=== PATIENT | male | born 1950 | race African-American/Black ===

== ENCOUNTER 2016-05-01 08:22 | Emergency (ER) | payer MEDICARE ==
[2016-05-01 11:08] LABS: BASOPHILS 0.1 % (0.0-2.0); EOSINOPHILS 1.6 % (0-7); HEMOGLOBIN 12.2 g/dL (13.5-17.5); IMMATURE GRANULOCYTES 0.5 % (0-5); LYMPHOCYTES 29.5 % (15-50); MCHC 32.1 g/dL (31.0-37.0); MCV 74.7 fL (80.0-100.0); MEAN PLATELET VOLUME 11.4 fL (7.4-10.4); MONOCYTES 7.2 % (2-11); NEUTROPHILS 61.1 % (40-80); RBC 5.09 10x6/uL (4.20-6.10); RDW 13.4 % (11.5-14.5); WBC 8.5 10x3/uL (4.8-10.8)
[2016-05-01 11:10] LABS: ALBUMIN 3.7 g/dL (3.4-5.0); ALKALINE PHOSPHATASE 72 U/L (46-116); ALT (SGPT) 21 U/L (10-68); BILIRUBIN - TOTAL 0.43 mg/dL (0.2-1.3); CALC OSMOLALITY 279 mosm/kg (275-300); CALCIUM 9.3 mg/dL (8.5-10.1); CARBON DIOXIDE 29.7 mmol/L (21.0-32.0); CHLORIDE - SERUM 102 mmol/L (98-107); CREATININE - SERUM 0.9 mg/dL (0.6-1.3); GLUCOSE 169 mg/dL (74-106); PROTEIN - SERUM 7.9 g/dL (6.4-8.2); SODIUM 138 mmol/L (136-145); UREA NITROGEN 12 mg/dL (7-18); eGFR NON AFRICAN AMERICAN 90 mL/min (90-120)
[2016-05-01 11:11] LABS: PLATELET COUNT 184 10x3/uL (130-400)
== END 2016-05-01 11:50 | disposition home or self-care (01) ==
LOC: D.ER 08:22
PROVIDERS: Emergency Medicine
DX: E11.65 Type 2 diabetes mellitus with hyperglycemia (principal)

== ENCOUNTER 2019-04-01 23:42 | Emergency (ER) | payer MEDICARE ==
[~2019-04-01] VITALS: Ht 175.3 cm; Wt 81.8 kg
[2019-04-01 23:44] VITALS: Ht 175.3 cm; Wt 81.8 kg
[2019-04-01] MEDS ORDERED: COZAAR100 MG PO (23:45)
[2019-04-01] MEDS ORDERED: GLIPIZIDE10 MG PO (23:45)
[2019-04-01] MEDS ORDERED: PIOGLITAZONE15 MG PO (23:46)
[2019-04-02 02:21] VITALS: BP 177/86
== END 2019-04-02 02:21 | disposition home or self-care (01) ==
LOC: D.ER 23:42
DX: I95.1 Orthostatic hypotension (principal); I10 Essential (primary) hypertension; E11.9 Type 2 diabetes mellitus without complications; Z79.84 Long term (current) use of oral hypoglycemic drugs

== ENCOUNTER 2019-05-08 05:00 | Observation (INO) | payer MEDICARE ==
[~2019-05-08] VITALS: Ht 175.3 cm; Wt 64.9 kg
[2019-05-08 05:28] LABS: BASOPHILS 0 % (0-2); EOSINOPHILS 0.3 % (0-7); HEMATOCRIT 29.6 % (42.0-54.0); HEMOGLOBIN 9.7 g/dL (13.5-17.5); IMMATURE GRANULOCYTES 0.3 % (0-5); LYMPHOCYTES 16.1 % (15-50); MCH 23.7 pg (26.0-34.0); MCHC 32.8 g/dL (31.0-37.0); MCV 72.4 fL (80.0-100.0); MEAN PLATELET VOLUME 9.9 fL (7.4-10.4); MONOCYTES 9.5 % (2-11); NEUTROPHILS 73.8 % (40-80); PLATELET COUNT 198 10x3/uL (130-400); RBC 4.09 10x6/uL (4.20-6.10); RDW 13.5 % (11.5-14.5); WBC 6.2 10x3/uL (4.8-10.8)
[2019-05-08 05:29] LABS: CALCIUM 8.6 mg/dL (8.5-10.1); CARBON DIOXIDE 27.6 mmol/L (21.0-32.0); CHLORIDE - SERUM 99 mmol/L (98-107); CREATININE - SERUM 0.9 mg/dL (0.6-1.3); POTASSIUM - SERUM 3.3 mmol/L (3.5-5.1); SODIUM 134 mmol/L (136-145); UREA NITROGEN 16 mg/dL (7-18); eGFR NON AFRICAN AMERICAN 89 mL/min (90-120)
--- NOTE | 2019-05-08 05:30 | NUR ---
SANDWICH TRAY GIVEN.
[2019-05-08 05:34] LABS: ALBUMIN 2.7 g/dL (3.4-5.0); ALKALINE PHOSPHATASE 52 U/L (30-120); ALT (SGPT) 22 U/L (10-68); BILIRUBIN - TOTAL 0.22 mg/dL (0.2-1.3); LIPASE 124 U/L (73-393); MAGNESIUM - SERUM 1.8 mg/dL (1.8-2.4); PROTEIN - SERUM 6.8 g/dL (6.4-8.2)
[2019-05-08 05:35] LABS: CALC OSMOLALITY 266 mosm/kg (275-300); GLUCOSE 66 mg/dL (74-106)
[2019-05-08 06:10] LABS: BILIRUBIN NEGATIVE (NEGATIVE); GLUCOSE 100 mg/dL (NEGATIVE); KETONE NEGATIVE (NEGATIVE); NITRITE POSITIVE (NEGATIVE); UROBILINOGEN NORMAL (NORMAL)
[2019-05-08 06:12] LABS: BACTERIA MODERATE /hpf (NEGATIVE); EPITHELIAL CELLS NSEEN /hpf (0-5); RED CELLS - URINE 0-5 /hpf (0-5)
--- NOTE | 2019-05-08 11:25 | NUR ---
PATIENT BLOOD SUGAR 86. CRACKERS AND PB GIVEN WELL APPLE JUICE.
--- NOTE | 2019-05-08 14:30 | NUR ---
RESTING IN BED. DENIES NEEDS. WILL CONTINUE TO MONITOR.
[2019-05-08 14:38] LABS: CALCIUM 7.7 mg/dL (8.5-10.1); CARBON DIOXIDE 26.8 mmol/L (21.0-32.0); CHLORIDE - SERUM 101 mmol/L (98-107); MAGNESIUM - SERUM 1.6 mg/dL (1.8-2.4); SODIUM 134 mmol/L (136-145); TROPONIN-I 0.028 ng/mL (0.000-0.060); UREA NITROGEN 18 mg/dL (7-18); eGFR NON AFRICAN AMERICAN 79 mL/min (90-120)
[2019-05-08 14:53] LABS: CALC OSMOLALITY 270 mosm/kg (275-300); GLUCOSE 118 mg/dL (74-106)
--- NOTE | 2019-05-08 20:00 | NUR ---
ALERT RESTING IN BED, DENIES PAIN OR NEEDS AT THIS TIME, SEE SHIFT ASSESSMENT, CALL LIGHT IN REACH
[2019-05-09 05:07] LABS: BASOPHILS 0 % (0-2); EOSINOPHILS 0.3 % (0-7); HEMATOCRIT 27.2 % (42.0-54.0); HEMOGLOBIN 8.9 g/dL (13.5-17.5); IMMATURE GRANULOCYTES 0.5 % (0-5); LYMPHOCYTES 25.3 % (15-50); MCH 23.8 pg (26.0-34.0); MCHC 32.7 g/dL (31.0-37.0); MCV 72.7 fL (80.0-100.0); MEAN PLATELET VOLUME 10.4 fL (7.4-10.4); MONOCYTES 10.5 % (2-11); NEUTROPHILS 63.4 % (40-80); PLATELET COUNT 200 10x3/uL (130-400); RBC 3.74 10x6/uL (4.20-6.10); RDW 13.6 % (11.5-14.5)
[2019-05-09 05:18] LABS: ALBUMIN 2.4 g/dL (3.4-5.0); ALKALINE PHOSPHATASE 44 U/L (30-120); ALT (SGPT) 19 U/L (10-68); BILIRUBIN - TOTAL 0.25 mg/dL (0.2-1.3); CALC OSMOLALITY 270 mosm/kg (275-300); CARBON DIOXIDE 28.5 mmol/L (21.0-32.0); CHLORIDE - SERUM 102 mmol/L (98-107); CREATININE - SERUM 0.9 mg/dL (0.6-1.3); GLUCOSE 92 mg/dL (74-106); MAGNESIUM - SERUM 1.6 mg/dL (1.8-2.4); POTASSIUM - SERUM 3.8 mmol/L (3.5-5.1); PROTEIN - SERUM 6.3 g/dL (6.4-8.2); SODIUM 135 mmol/L (136-145); UREA NITROGEN 15 mg/dL (7-18); eGFR NON AFRICAN AMERICAN 89 mL/min (90-120)
[2019-05-09 05:30] LABS: WBC 3.8 10x3/uL (4.8-10.8)
--- NOTE | 2019-05-09 12:52 | HP ---
PATIENT: SAMEER WHITE MEDICAL RECORD: [id number] ACCOUNT: [id number] LOCATION:D.[id number] : 50 ADMISSION DATE: 05/08/19 PCP: RICA CARDONA MD HISTORY AND PHYSICAL EXAMINATION DATE OF ADMISSION: 05/08/2019 CHIEF COMPLAINT: Low blood sugar. HISTORY OF PRESENT ILLNESS: This is a 68-year-old -Armenian male has an indwelling catheter for BPH. He is awaiting followup visit with Dr. Gale to schedule UroLift procedure. His states that a last couple of nights his blood sugar has been lower. He woke up in a "heavy sweat" last couple of nights. She checked his blood sugar and it was down to 35. She gave him some candy. She called EMS and blood sugar was 55 by them. He was brought to the ER where his blood pressure was 102/72. CBC was okay except hemoglobin of 9.7. CMP was normal. Urinalysis showed urinary infection and he is admitted with multiple hypoglycemic episodes of UTI with Mendes catheter. PAST MEDICAL AND SURGICAL HISTORY: Diabetes, hypertension, hyperlipidemia, BPH with LUTS. PAST SURGICAL HISTORY: None. ALLERGIES: Cough with ASA inhibitors and metformin caused GI side-effects. HOME MEDICATIONS: Diltiazem ER 240 once a day, Flomax 0.4 mg once a day, glipizide 10 mg once a day, pioglitazone 15 mg once a day. HABITS: Former smoker, no alcohol or drugs. FAMILY HISTORY: Father at 80 of prostate cancer. Mother at 97 of lung issues. SOCIAL HISTORY: , retired. REVIEW OF SYSTEMS: GENERAL: No major weight changes. HEENT: No sinus or allergy problems. RESPIRATORY: No history of emphysema or asthma. CARDIAC: No history of heart disease. GASTROINTESTINAL: Occasional heartburn. GENITOURINARY: BPH with a normal PSA. MUSCULOSKELETAL: Few joint aches and pains. NEUROLOGIC: No seizures or migraines. PSYCHIATRIC: No known problems there. PHYSICAL EXAMINATION: VITAL SIGNS: Temperature 98.4, pulse 96, respirations 18, blood pressure 102/72 in the Emergency Department. GENERAL: He is awake and alert. He does not appear in distress. SKIN: Warm and dry. HEENT: Grossly within normal limits. NECK: Supple. HEART: Regular rate and rhythm without murmur. HISTORY AND PHYSICAL [id number] SAMEER WHITE LUNGS: Clear. ABDOMEN: Soft, nontender. EXTREMITIES: No edema. LABORATORY AND DIAGNOSTIC DATA: CBC with a white count of 6200, hemoglobin 9.7, hematocrit 29.6. Basic metabolic panel; sodium 134, potassium 3.3, chloride 99, CO2 27.6, BUN 16, creatinine 0.9, glucose 66 and calcium 8.6. Liver functions were all normal. ETOH was 0.0. Urinalysis; 1+ protein, 2+ blood, positive nitrite, 1+ leukocyte esterase, 5-10 white blood cells and moderate bacteria. Urine culture is pending. ASSESSMENT: 1. Catheter associated urinary tract infection. 2. Type 2 diabetes with hypoglycemic episodes. PLAN: We will admit, IV fluids. Suggest diabetes medicines, IV antibiotics for his UTI. Urine culture is pending. Other tests or procedures as warranted. TRANSINT:[id number] Voice Confirmation ID: [id number] DOCUMENT ID: [id number] RICA CARDONA MD at 1252 CC: [id number] DICTATION DATE: 05/09/19928 IT SECURITY ADMINISTRATOR: 05/09/19 09 ADM IN [place] [address] [place] [id number]
[2019-05-09 13:30] VITALS: Ht 175.3 cm; Wt 64.9 kg
--- NOTE | 2019-05-09 14:30 | NUR ---
REMOVED CARDENAS ORDERED. FAMILY IS AT THE BEDSIDE, TALKED WITH THE PATIENT AND FAMILY.
--- NOTE | 2019-05-09 17:22 | MORECARE ---
CASE MANAGEMENT DISCHARGE SUMMARY PATIENT: SAMEER WHITE UNIT: [id number] ADM DATE: 05/08/19 AGE: 68 : 50 SEX: M ROOM/BED: D.2234 AUTHOR: MARLENE GIL PHYSICIAN: REFERRING PHYSICIAN: RICA CARDONA MD DATE OF SERVICE: 05/09/19 Discharge Plan Patient Name: SAMEER WHITE [facility] [facility] 1950 Planned Disposition: Anticipated Discharge Date: Discharge Date: Expected LOS: Initial Reviewer: [email or web address] Initial Review Date: 05/08/2019 Generated: 05/09/19 6:21 pm External Providers External Provider: OTHER-OTHER Next Contact Date: Service Request Date: Service Type: Resolution: Reviewer: Comments: Coverage Notice Reviewer: [email or web address] Dewayne Murphy Notice Issued Date-Time: 05/08/2019 17:33 Notice Type: Medicare Outpatient Observation Notice Notice Delivered To: Patient Relationship to Patient: Self Knit Goods Press Hand Name: Delivery Method: HAND - Hand Delivered Dania Days: Prior Verbal Notification: Recipient Understood Notice: Yes Recipient Signature: Yes Med Rec Note Co-signed by Attending: Coverage Notice Comment: FAULKNER explained, signed, given, copy placed in MR Patient Name: SAMEER WHITE Page [phone] at 1722 All edits/amendments must be made on the electronic document DICTATION DATE: 05/09/191720 PRESIDENT/GM PRODUCTION & LIVE EXPERIENCES: JACK 05/09/191720 RPT#: [id number] DC DATE: STATUS: ADM IN [facility] [address] [place] [address] END OF REPORT
--- NOTE | 2019-05-09 19:00 | NUR ---
BEDSIDE REPORT RECEIVED AND CARE OF PT ASSUMED. PT LYING IN SUPINE POSITION WITH EYES CLOSED. CARDENAS CATHETER DRAINING TO GRAVITY WITH YELLOW URINE IN COLLECTION BAG. IV TO RIGHT AC SALINE LOCKED. TELEMETRY IN PLACE AND READING SR AT THIS ASSESSMENT. CONTACT ISOLATION IN PLACE FOR POSSIBLE MRSA. WILL MONITOR FOR NEEDS.
--- NOTE | 2019-05-09 19:04 | NUR ---
PLACED A CARDENAS WITHOUT DIFFICULTY. STAT LOCK IN PLACE.
--- NOTE | 2019-05-09 20:35 | NUR ---
HS MEDICATIONS GIVEN. FSBS 248 THIS CHECK REQUIRING COVERAGE WITH 4 UNITS OF INSULIN PER SLIDING SCALE.
--- NOTE | 2019-05-10 02:07 | NUR ---
EMPTIED OVER 3000 ML FROM CARDENAS SO FAR THIS SHIFT.
--- NOTE | 2019-05-10 06:03 | NUR ---
PT HAVING NOSEBLEED...GAVE COOL WET CLOTH AND TISSUES. WILL CONTINUE TO MONITOR CLOSELY.
--- NOTE | 2019-05-10 07:10 | NUR ---
PT RESTING IN BED. NO SIGNS OF DISTRESS. IV TO RIGHT AC PATENT NO REDNESS OR TENDERNESS. ON TELEMETRY 99 SR. HAS CARDENAS NO KINKS PATENT. ON CONTACT ISO. ALL FALL PRECAUTIONS IN PLACE. DENIES ANY FURTHER NEED AT THIS TIME. CALL LIGHT IN REACH. BED LOW POSITION. FAMILY AT BEDSIDE AT THIS TIME.
--- NOTE | 2019-05-10 10:13 | MORECARE ---
CASE MANAGEMENT DISCHARGE SUMMARY PATIENT: SAMEER WHITE UNIT: [id number] ADM DATE: 05/08/19 AGE: 68 : 50 SEX: M ROOM/BED: D.2234 AUTHOR: MARLENE GIL PHYSICIAN: REFERRING PHYSICIAN: RICA CARDONA MD DATE OF SERVICE: 05/10/19 Discharge Plan Patient Name: SAMEER WHITE Facility: [facility]:[place] : 1950 Planned Disposition: Anticipated Discharge Date: Discharge Date: Expected LOS: Initial Reviewer: [email or web address] Initial Review Date: 05/08/2019 Generated: 05/10/19 11:13 am Comments DCP- Discharge Planning Updated by [email or web address]: Kathrine Murphy on 05/10/19 9:[address] Urine sensitivities are on chart. I have notified Ali at Dr. Cardona's office. Coverage Notice Reviewer: [email or web address] - Kathrine Murphy Notice Issued Date-Time: 05/08/2019 17:33 Notice Type: Medicare Outpatient Observation Notice Notice Delivered To: Patient Relationship to Patient: Self Web Marketing Coordinator Name: Delivery Method: HAND - Hand Delivered Dania Days: Prior Verbal Notification: Recipient Understood Notice: Yes Recipient Signature: Yes Med Rec Note Co-signed by Attending: Coverage Notice Comment: LUCIE explained, signed, given, copy placed in MR Last DP export: 05/09/19 4:22 p Patient Name: SAMEER WHITE Page [phone] at 1013 All edits/amendments must be made on the electronic document DICTATION DATE: 05/10/19 1013 FBI FIELD AGENT: JACK 05/10/19 1013 RPT#: [id number] DC DATE: STATUS: ADM IN [facility] [address] [place] [address] END OF REPORT
[2019-05-10 13:16] VITALS: BP 101/60
--- NOTE | 2019-05-10 14:12 | MORECARE ---
CASE MANAGEMENT DISCHARGE SUMMARY PATIENT: SAMEER WHITE UNIT: [id number] ADM DATE: 05/08/19 AGE: 68 : 50 SEX: M ROOM/BED: D.2234 AUTHOR: MARLENE GIL PHYSICIAN: REFERRING PHYSICIAN: RICA CARDONA MD DATE OF SERVICE: 05/10/19 Discharge Plan Patient Name: SAMEER WHITE Facility: [facility]:[place] : 1950 Planned Disposition: Anticipated Discharge Date: Discharge Date: Expected LOS: Initial Reviewer: [email or web address] Initial Review Date: 05/08/2019 Generated: 05/10/19 3:11 pm Comments DCP- Discharge Planning Updated by [email or web address]: Kathrine Murphy on 05/10/19 9:[address] Urine sensitivities are on chart. I have notified Ali at Dr. Cardona's office. External Providers External Provider: [employer] Next Contact Date: Service Request Date: Service Type: Resolution: Reviewer: Comments: Coverage Notice Reviewer: [email or web address] Dewayne Murphy Notice Issued Date-Time: 05/08/2019 17:33 Notice Type: Medicare Outpatient Observation Notice Notice Delivered To: Patient Relationship to Patient: Self Convex Grinder Name: Delivery Method: HAND - Hand Delivered Dania Days: Prior Verbal Notification: Recipient Understood Notice: Yes Recipient Signature: Yes Med Rec Note Co-signed by Attending: Coverage Notice Comment: LUCIE explained, signed, given, copy placed in MR Last DP export: 05/10/19 9:13 a Patient Name: SAMEER WHITE Page [phone] at 1412 All edits/amendments must be made on the electronic document DICTATION DATE: 05/10/19 1412 OUT OF TOWN COLLECTION CLERK: JACK 05/10/19 1412 RPT#: [id number] DC DATE: STATUS: ADM IN [facility] [address] [place] [address] END OF REPORT
--- NOTE | 2019-05-10 15:43 | NUR ---
DISCHARGE INSTRUCTIONS GIVEN. SEEMS TO UNDERTSTAND INSTRCUTIONS. IV OUT TIP INTACT. TELEMETRY OFF AND RETURNED. LEFT WITH HOSPITAL STAFF TO GO HOME IN [place] RIDE TO GO HOME
== END 2019-05-10 15:44 | disposition home health service (06) ==
LOC: D.ER 05:00 → D.MS 06:53 → D.ER 07:26 → OBSVTIME 08:11 → D.MS 05-10 15:44
PROVIDERS: Family Medicine; ADMIT Family Medicine; ATTEND Family Medicine
DX: T83.518A Infection and inflammatory reaction due to other urinary catheter, initial encounter (principal); E11.649 Type 2 diabetes mellitus with hypoglycemia without coma; E78.5 Hyperlipidemia, unspecified; I12.9 Hypertensive chronic kidney disease with stage 1 through stage 4 chronic kidney disease, or unspecified chronic kidney disease; N18.9 Chronic kidney disease, unspecified

== ENCOUNTER 2019-05-30 06:00 | Day surgery (SDC) | payer MEDICARE ==
[2019-05-29 14:54] LABS: HEMATOCRIT 29.8 % (42.0-54.0); HEMOGLOBIN 9.7 g/dL (13.5-17.5); MCH 24.5 pg (26.0-34.0); MCHC 32.6 g/dL (31.0-37.0); MCV 75.3 fL (80.0-100.0); MEAN PLATELET VOLUME 10.2 fL (7.4-10.4); RBC 3.96 10x6/uL (4.20-6.10); RDW 15.4 % (11.5-14.5); WBC 6.3 10x3/uL (4.8-10.8)
[2019-05-29 15:09] LABS: ANION GAP 16.7 mmol/L (8-16); CALCIUM 9.1 mg/dL (8.5-10.1); CARBON DIOXIDE 22.2 mmol/L (21.0-32.0); CREATININE - SERUM 1.4 mg/dL (0.6-1.3); POTASSIUM - SERUM 3.9 mmol/L (3.5-5.1)
[~2019-05-30] VITALS: Ht 175.3 cm; Wt 64.9 kg
[~2019-05-30 06:00] MED LIST: CARDURA2 MG PO; COZAAR100 MG PO; DILTIAZEM 24HR240 M4 PO; FLOMAX0.4 MG PO; GLIPIZIDE10 MG PO; PIOGLITAZONE15 MG PO; VIBRAMYCIN 100100 MG PO
[2019-05-30 06:47] VITALS: Ht 175.3 cm; Wt 64.9 kg
--- NOTE | 2019-05-30 09:44 | OP ---
PATIENT NAME: SAMEER WHITE MEDICAL RECORD: [id number] :50 LOCATION:D[facility] ADMISSION DATE: SURGEON: JORDIN LIZARRAGA MD DATE OF OPERATION: 05/30/2019 SURGEON: Jordin Lizarraga MD ANESTHESIA: TIVA by Taco [place] MD DIAGNOSIS: Urinary retention due to obstructive benign prostatic hypertrophy. PROCEDURE: UroLift times 8 units deployed, 6 held (4 in-box configuration around bladder neck, and 2 at the verumontanum level). FINDINGS: Obstructive bladder neck and lateral lobes. Single ureteral orifices bilaterally. Mucosal irritation from the indwelling Mendes catheter, but no bladder tumors were seen. The bladder is trabeculated with cellules and diverticula. CLINICAL HISTORY: This is a 68-year-old male, who went into urinary retention, which caused hyponatremia, metabolic encephalopathy, and acute renal failure. He has an indwelling Mendes catheter since then. He has a history of diabetes mellitus type 2 and hypertension. His IPSS is 25 and quality of life score is 5. He has been put on tamsulosin since his hospitalization. We performed a voiding trial in the office and he failed that. HE IS ALLERGIC TO METFORMIN AND LISINOPRIL. He comes now to have the UroLift procedure done. He was given Levaquin IV vp communications to the OR. DESCRIPTION OF PROCEDURE: The patient was given IV sedation. He was placed into the lithotomy position. The UroLift scope was introduced. The main sites of obstruction are the lateral lobes of the prostate and at the bladder neck. Then, 1.5 cm distal to the bladder neck, we placed at the anterolateral sulcus 1 unit on each side. Then, at the level of the verumontanum, we placed at the anterolateral sulcus 1 unit on each side. We had one misfire on the left anterolateral sulcus near the bladder neck. There was another misfire on the right anterolateral sulcus at the verumontanum level. We then went in with the obturator. There was still obstruction of the bladder neck. I decided to create a box configuration around the bladder neck. One unit was fired at the mid urethral level 1.5 cm distal to the bladder neck. One unit was fired on each side. This resulted in nice wide open bladder neck and prostatic urethra. Through the scope sheath, I inserted a Sensor wire. The scope was then removed. Over the wire, we inserted a 16-[place] tip Mendes catheter. The patient will go home with the Mendes catheter. I will see him in followup next week to remove the Mendes catheter for a voiding trial. TRANSINT:[id number] Voice Confirmation ID: [id number] DOCUMENT ID: [id number] OPERATIVE REPORT [id number] SAMEER WHITE, JORDIN Medina MD at 0944 CC: [id number] DICTATION DATE: 05/30/19904 RACK WASHER: 05/30/19 0930 [address] [place] [id number] [place] [address]
--- NOTE | 2019-05-30 14:39 | NUR ---
[address] LIZARRAGA WITH REPORT OF PT'S PAIN & REQUEST FOR PAIN MED. ORDERS RECEVIED. 1 NORCO 7.5/325MG PO FOR PAIN. PT RANKS PAIN -10/22. Estela SHARIF R.N. 1145 RANKS PAIN @ 3-06/22 DOWN FROM PREVIOUS -10/22. IV COMPLETED & DC'ED WITH CATH INTACT. CARDENAS COLLECTION BAG EMPTIED OF 100ML BLOODY URINE. PT DRESSING WITH ASSISTANCE FROM . Estela SHARIF R.N. 1210 DRESSED. AWAKE & ALERT. GIVEN DISCHARGE INFORMATION INCLUDING: MED REC, RTC APPT., [facility] D/C INSTRUCTIONS & POST UROLIFT D/C INSTRUCTIONS. PT & VOICED UNDERSTANDING. TO PRIVATE CAR PER STAFF. HOME WITH , SHAVON WHITE. Estela SHARIF R.N.
== END 2019-05-30 12:10 | disposition home or self-care (01) ==
LOC: D.OPS 06:00 → D.PAN 08:10 → D.OPS 08:10 → D.PAN 08:15 → D.OPS 12:10
PROVIDERS: Anesthesiology; ATTEND Urology
DX: N40.1 Benign prostatic hyperplasia with lower urinary tract symptoms (principal); N13.8 Other obstructive and reflux uropathy; E11.9 Type 2 diabetes mellitus without complications; I10 Essential (primary) hypertension; Z79.84 Long term (current) use of oral hypoglycemic drugs; R33.8 Other retention of urine

== ENCOUNTER 2019-06-23 14:22 | Inpatient (IN) | payer MEDICARE ==
--- NOTE | 2019-06-23 17:50 | NUR ---
The patient admits to halfway with a refferal from Dr. Marie. He is ambulatory and pleasant at this time. Apparently he has had some issues with increased confusion and aggression at home. He has one scar on his chest from an old heart surgery. Spoke to his and she says he is a full code. The patient is pleasant and another patient is screaming and it is making him nervous. Will monitor his behaviors and moods.
[2019-06-23] MEDS ORDERED: GLIMEPIRIDE1 MG PO (18:14)
[2019-06-23 18:15] VITALS: BP 149/82; BMI 21.1
[2019-06-23 20:00] VITALS: BP 167/87
--- NOTE | 2019-06-24 00:09 | NUR ---
B.) PT IS ALERT AND ORIENTED TO SELF AND SITUATION. HE IS CALM AND COOPERATIVE WITH STAFF. HE IS PARANOID AT TIMES AND WANTS THE DOOR TO HIS ROOM BE OPEN SLIGHTLY SO HE MAY SEE THE PETERSON. HIS HANDS ARE SHAKING A LITTLE. I.) REDIRECT OFTEN. R.) EASY TO REDIRECT P.) WILL CONTINUE TO MONITOR.
[2019-06-24 03:24] LABS: BILIRUBIN NEGATIVE (NEGATIVE); GLUCOSE 50 mg/dL (NEGATIVE); KETONE NEGATIVE (NEGATIVE); NITRITE NEGATIVE (NEGATIVE); UROBILINOGEN NORMAL (NORMAL)
[2019-06-24 03:25] LABS: RED CELLS - URINE 0-5 /hpf (0-5); WHITE CELLS - URINE RARE /hpf (NEGATIVE)
[2019-06-24 03:38] LABS: BASOPHILS 0.2 % (0-2); EOSINOPHILS 1.6 % (0-7); HEMATOCRIT 33.6 % (42.0-54.0); HEMOGLOBIN 10.5 g/dL (13.5-17.5); IMMATURE GRANULOCYTES 0.2 % (0-5); LYMPHOCYTES 39.8 % (15-50); MCH 24.5 pg (26.0-34.0); MCHC 31.3 g/dL (31.0-37.0); MCV 78.3 fL (80.0-100.0); MEAN PLATELET VOLUME 9.6 fL (7.4-10.4); MONOCYTES 7.8 % (2-11); NEUTROPHILS 50.4 % (40-80); PLATELET COUNT 199 10x3/uL (130-400); RBC 4.29 10x6/uL (4.20-6.10); WBC 6.2 10x3/uL (4.8-10.8)
[2019-06-24 04:10] LABS: ALBUMIN 3.7 g/dL (3.4-5.0); ANION GAP 13.6 mmol/L (8-16); BILIRUBIN - TOTAL 0.36 mg/dL (0.2-1.3); CALCIUM 8.6 mg/dL (8.5-10.1); CHOL - HDL RATIO 1.6 ratio (2.3-4.9); CREATININE - SERUM 1.1 mg/dL (0.6-1.3); LDL-HDL RATIO 0.5 ratio (1.5-3.5); POTASSIUM - SERUM 3.6 mmol/L (3.5-5.1); PROTEIN - SERUM 7.7 g/dL (6.4-8.2); THYROID STIMULATING HORMONE 1.19 uIU/mL (0.36-3.74)
[2019-06-24] MEDS ORDERED: CENTRUM MEN'S1 EACH (06:50)
[2019-06-24 09:04] VITALS: BP 178/87
[2019-06-24 09:05] VITALS: BP 178/87
[2019-06-24 12:43] VITALS: Wt 64.2 kg
--- NOTE | 2019-06-24 13:34 | NUR ---
The patient is awake and alert, he is oriented x3 at this time. He is forgetful at times and needs redirection. He is pleasant and has not shown any aggression today. He can ambulate, but says he feels unsteady. He is in a w/c and he is attempting to self propel. Provide prescribed meds. The patient is compliant with meds and unit milieu. Continue POC.
[2019-06-24 20:00] VITALS: BP 152/81
--- NOTE | 2019-06-24 22:36 | NUR ---
B.) PT IS ALERT AND ORIENTED TO SELF AND SITUATION AT TIMES. HE IS UNSTEADY ON HIS FEET SO HE IS USING A WHEELCHAIR TO ASSIST WITH AMBULATION. HE IS DEMANDING AND INTRUSIVE WITH STAFF. HE IS PARANOID ABOUT HIS MEDICATIONS. I.) PROVIDED PM MEDICATIONS. REDIRECT NEEDED. R.) COMPLIANT WITH ALL MEDICATIONS. EASY TO REDIRECT AT TIMES. P.) WILL CONTINUE TO MONITOR.
[2019-06-25 08:54] VITALS: BP 130/70
--- NOTE | 2019-06-25 10:30 | NUR ---
The patient is up and awake. He is sitting in a w/c and self propels. He is pleasant, but he has questions about all of his meds. Explained to him that he has to take them to get to feeling better. He said "Well, I can't do anything with all that stuff I'm on." Provide prescribed meds. The patient is compliant with meds. Continue POC.
--- NOTE | 2019-06-25 16:41 | NUR ---
Spoke to the patient's spouse and she said she would like to speak to the psychiatrist and explained to her that the social media marketing specialist will speak to her soon and after that a phone conversation can be arranged with the psychiatrist. The patient's spouse was pleased with that answer.
--- NOTE | 2019-06-25 16:53 | HP ---
PATIENT: SAMEER WHITE MEDICAL RECORD: [id number] ACCOUNT: [id number] LOCATION:[facility] : 50 ADMISSION DATE: 06/23/19 PCP: RIAC CARDONA MD HISTORY AND PHYSICAL EXAMINATION Sameer White is a 68-year-old male that was referred to the [facility] from home, referred by primary care physician. CHIEF COMPLAINT: Increased confusion and agitation. HISTORY OF PRESENT ILLNESS: The patient presented with spouse to a primary care clinic. Spouse states that the patient has had increased belligerent, less participation with activities of daily living. The patient's spouse states that he gets fixated on one thing for the whole day. The patient reports that he does worry. The patient reports that he has lots of anxiety. He gets afraid and he gets jittery. The patient denies any suicidal or homicidal ideation. The patient states that he had high anxiety for some time and that it is getting worse and he cannot manage it. The patient states that he does worry. He states that he has difficulty with sleep and his appetite is poor. The patient states that he does get easily irritated and agitated. PAST MEDICAL AND SURGICAL HISTORY: He has had diabetes, hypertension, hyperlipidemia, BPH with LUTS. PAST SURGICAL HISTORY: None. FAMILY HISTORY: Noncontributory. ALLERGIES: COUGH WITH ASA INHIBITORS AND METFORMIN CAUSE GI SIDE EFFECTS. HOME MEDICATIONS: Potassium ER 240 once a day, Flomax 0.4 mg once a day, glipizide 10 mg once a day, pioglitazone 15 mg once a day. SOCIAL HISTORY: The patient is . His previous was killed in an accident. 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 Prior to that, he worked at the [employer]. He has one daughter that lives in [place] and he has a stepdaughter and current that lives in [place]. MENTAL STATUS EXAM: The patient's general appearance is appropriate to setting. The patient is alert to person, place, time and situation. His speech is soft, low tone, low volume. His associations are loose. His eye contact is good. His judgment is impaired. The patient does have some mild blocking. His mood is depressed and anxious. His affect is flat, narrow in range. The patient has no tremors to his hands bilaterally. His anxiety is moderate. His memory is good for remote events. Does have short-term memory deficits. The patient does not appear to be hallucinating to visual, auditory hallucinations at present; however, the patient reports that he does feel he had some at home. His judgment and insight is fair. DIAGNOSTIC IMPRESSION: AXIS I: Generalized anxiety disorder, major depression, single, moderate without psychotic features, differential dementia. AXIS II: Deferred. AXIS III: Diabetes, hypertension, hyperlipidemia, benign prostatic hyperplasia HISTORY AND PHYSICAL [id number] SAMEER WHITE with lower urinary tract symptoms. AXIS IV: Moderate. AXIS V: Global assessment of function is 30. PLAN: At this time, the patient is admitted to the hospital for a comprehensive medical, psychological, and social evaluation. He will be treated with both mood stabilizing and memory enhancing medication. Dictated By: Erendira Bo APN I have interviewed/examined the above patient and agree with these documented findings. TRANSINT:[id number] Voice Confirmation ID: [id number] DOCUMENT ID: [id number] Dictated By: ERENDIRA BO I have interviewed/examined the above patient and agree with these documented findings. LUCIE KIRBY MD at 1402 at 1653 CC: [id number] DICTATION DATE: 06/24/19 1320 LEAD ARCHITECT: 06/24/19 1537 [facility] IN [facility] [address] [place] [address]
--- NOTE | 2019-06-25 19:38 | NUR ---
RECEIVED IN HALLWAY OUTSIDE OF DINING AREA. MOVING ABOUT IN A WHEELCHAIR. CALM AND COOPERATIVE WITH CARE AND ASSESSMENT. SOCIAL WITH THIS STAFF MEMBER. NO SIGNS OF AGGRESSION. REDIRECT AND REORIENT NEEDED. SITTING CALMLY OUTSIDE OF NURSES STATION AT THIS TIME.
[2019-06-25 20:00] VITALS: BP 100/58
[2019-06-26 08:29] VITALS: BP 100/60
--- NOTE | 2019-06-26 12:00 | NUR ---
RECEIVED IN HALLWAY OUTSIDE OF NURSES STATION. CALM AND COOPERATIVE WITH CARE AND ASSESSMENT. NO AGGRESSION OR AGITATION. REDIRECT AND REORIENT NEEDED. EATING LUNCH AT THIS TIME. CONTINUE PLAN OF CARE.
[2019-06-26 20:11] VITALS: BP 161/86
--- NOTE | 2019-06-26 20:49 | NUR ---
RECEIVED IN DAYROOM. SITTING IN DAYROOM IN A WHEELCHAIR. SOCIAL WITH THIS NURSE. CALM AND COOPERATIVE WITH CARE AND ASSESSMENT. NO SIGNS OF AGGRESSION. REDIRECT AND REORIENT NEEDED. CONTINUES TO SIT CALMLY IN DAYROOM. CONTINUE PLAN OF CARE.
[2019-06-27 06:08] LABS: RAPID PLASMA REAGIN Non Reactive (Non Reactive)
[2019-06-27 08:47] VITALS: BP 129/71
--- NOTE | 2019-06-27 09:16 | NUR ---
RECEIVED IN HALLWAY OUTSIDE OF NURSES STATION. CALM AND COOPERATIVE WITH CARE AND ASSESSMENT. NO AGGRESSION. REDIRECT AND REORIENT NEEDED. EATING BREAKFAST AT THIS TIME. CONTINUE PLAN OF CARE.
--- NOTE | 2019-06-27 15:01 | PN ---
PATIENT:SAMEER WHITE MEDICAL RECORD: [id number] LOCATION:[facility] ADMISSION DATE: 06/23/19 PROGRESS NOTE DATE OF SERVICE: 06/26/2019 SUBJECTIVE: The patient's case was discussed with staff. He has no new complaint. OBJECTIVE: The patient is significantly and seriously impaired cognitively. He is displaying hyperreligiosity and complete absence of short term memory. ASSESSMENT: 1. Dementia of the Alzheimer's type. 2. Major depression. PLAN: Current medicines have been reviewed. I am going to start him on Aricept and will double the dose of Zoloft. TRANSINT:[id number] Voice Confirmation ID: [id number] DOCUMENT ID: [id number] LUCIE KIRBY MD at 1501 CC: [id number] DICTATION DATE: 06/26/19 165 PRECISION FILER HAND: 06/26/19 1730 ADM IN [place] [address] [place] [address]
--- NOTE | 2019-06-27 19:41 | NUR ---
RECEIVED IN DAYROOM. SITTING IN A WHEELCHAIR WITH PEERS AT HIS SIDE. CALM AND COOPERATIVE WITH CARE AND ASSESSMENT. NO SIGNS OF AGGRESSION. REDIRECT AND REORIENT NEEDED. CONTINUES TO SIT CALMLY. CONTINUE PLAN OF CARE.
[2019-06-27 20:22] VITALS: BP 159/82
[2019-06-28 09:10] VITALS: BP 153/76
--- NOTE | 2019-06-28 11:46 | PN ---
PATIENT:SAMEER WHITE MEDICAL RECORD: [id number] LOCATION:[facility] ADMISSION DATE: 06/23/19 PROGRESS NOTE DATE OF SERVICE: 06/27/2019 SUBJECTIVE: The patient's case was discussed with staff. He has no new complaint. OBJECTIVE: The patient is calm and cooperative. He is partially oriented and shows significant impairment in his cognition. He ate well yesterday and slept well last night. ASSESSMENT: Dementia. PLAN: The patient can be transitioned home tomorrow or the next day. He has shown significant improvement and has not had the aggression that brought him here. TRANSINT:[id number] Voice Confirmation ID: [id number] DOCUMENT ID: [id number] LUCIE KIRBY MD at 1146 CC: [id number] DICTATION DATE: 06/27/191652 HAND SPRING FORMER: 06/27/19 2253 ADM IN [place] [id number] [place] [address]
--- NOTE | 2019-06-28 12:00 | NUR ---
RECEIVED IN HALLWAY OUTSIDE OF NURSES STATION. CALM AND COOPERATIVE WITH CARE AND ASSESSMENT. NO AGGRESSIVE BEHAVIOR. REDIRECT AND REORIENT NEEDED. EATING LUNCH AT THIS TIME. CONTINUE PLAN OF CARE.
[2019-06-28 20:00] VITALS: BP 172/77
--- NOTE | 2019-06-28 22:30 | NUR ---
B.) PT IS ALERT AND ORIENTED TO SELF, TIME AND SITUATION. HE IS ABLE TO AMBULATE AND MAKE HIS NEEDS KNOWN. HE IS OFTEN PREOCCUPIED WITH SIMPLE THINGS AND HE CANNOT WITH MOVE ON TO ANOTHER TASK. HE IS CALM AND COOPERATIVE. I.) PROVIDED PM MEDICATIONS PRESCRIBED. REDIRECT OFTEN. R.) COMPLIANT WITH ALL MEDICATIONS. DIFFICULT TO REDIRECT AT TIMES. P.) WILL CONTINUE TO MONITOR.
[2019-06-29 09:08] VITALS: BP 157/76
--- NOTE | 2019-06-29 12:15 | NUR ---
PT SITTING AT TABLE EATING LUNCH AT THIS TIME. NO DISTRESS NOTED. PT CAN MAKE NEEDS KNOWN. PT IS ALERT AT TIMES WITH CONFUSION NOTED. PT IS COMPLIANT WITH MEDS, VITALS AND ASSESSMENTS. PT IS FRIENDLY WITH OTHER STAFF AND PEERS. CHAIR ALARM IN PLACE AND ACTIVE. WILL CONT PLAN OF CARE.
--- NOTE | 2019-06-29 12:36 | NUR ---
Nutrition Follow-up: Eating well overall. Diet: Diabetic PO intake: 83% avg x 9 meals Wt: 141.4# (06/24); 143# (06/22) Last BM: 06/27 Labs reviewed Meds noted: Miralax, vitamin D, Amaryl, Senokot -Encourage PO intake and honor food preferences within diet restrictions. -Monitor wt. -RD following.
--- NOTE | 2019-06-29 15:37 | PN ---
PATIENT:SAMEER WHITE MEDICAL RECORD: [id number] LOCATION:[facility] ADMISSION DATE: 06/23/19 PROGRESS NOTE DATE OF SERVICE: 06/28/2019 SUBJECTIVE: The patient's case was discussed with staff. He has no new complaint. OBJECTIVE: The patient is in good behavioral control. He is impaired cognitively, but not disruptive. ASSESSMENT: Dementia. PLAN: The patient clearly was in need of supervision that was not being obtained at home. The treatment team discussed this and is going to be presented to his . I think if he had appropriate supervision through the day that is to say if she was not leaving him at home or she went to work all day, he would be fine. I am also going to start him on Namenda for his cognitive impairment. TRANSINT:[id number] Voice Confirmation ID: [id number] DOCUMENT ID: [id number] LUCIE KIRBY MD at 1537 CC: [id number] DICTATION DATE: 06/28/19 1313 BUILDING CERTIFIER: 06/28/19 1319 ADM IN [address] [place] [address]
--- NOTE | 2019-06-29 18:18 | NUR ---
PT C/O HE COULD NOT BREATHE AND HIS VITALS SIGNS ARE: B/P: 144/65, P: 89, 02 SAT: 99% WHEN HAND WAS STILL AND WHEN HE WAS MOVING IT WAS 86%, R: 18. NOTIFIED Melanie COTTRELL APN. ORDERED TO GIVE ATIVAN 0.5 MG PO FOR ANXIETY. LUNGS SOUNDS BILATERL WERE CLEAR. PT COULD STILL SPEAK TO STAFF AT THIS TIME, NO CYNATIC NOTED. WILL CONT TO MONITOR. ENCOURAGEMENT GIVEN TO TAKE MEDICATION.
[2019-06-29 20:36] VITALS: BP 139/69
--- NOTE | 2019-06-29 20:49 | NUR ---
PATIENT IS VERY CONFUSED, SEEMS "SUSPICIOUS" OF OTHERS, HAD TO BE TALKED IN TO TAKING MEDS AND HE ATTEMPTED TO SPIT THEM OUT IN THE CUP. HE IS STAYING TO HIMSELF. VERY QUIET. WILL MONITOR PATIENT'S BEHAVIOR AND FOR SIDE EFFECTS OF MEDS.
--- NOTE | 2019-06-30 10:00 | NUR ---
PT HAS A FAMILY MEMBER CALLED. PASSCODE GIVEN. SHE WANTED TO CHECK ON HOW HE WAS DOING TODAY. HE WAS GOING HOME WITH HIS TOMORROW. SHE VERBALIZED UNDERSTANDING ABOUT UPDATE REPORT AND THANKED NURSE.
[2019-06-30 10:09] VITALS: BP 130/72
--- NOTE | 2019-06-30 13:02 | NUR ---
The patient is quiet he sits away from everyone, he has not shown any agitation today. He is oriented to person and place. He is self propelling in his w/c, but he can walk, he is unsteady. Provide prescribed meds. The patient is compliant with meds. Continue POC.
--- NOTE | 2019-06-30 15:48 | PN ---
PATIENT:SAMEER WHITE MEDICAL RECORD: [id number] LOCATION:[facility] ADMISSION DATE: 06/23/19 PROGRESS NOTE DATE OF SERVICE: 06/29/2019 SUBJECTIVE: The patient's case was discussed with staff. He has no new complaint. OBJECTIVE: The patient denies intent to harm himself or others. He is tolerating his medicines well. ASSESSMENT: Dementia. PLAN: The patient will be transitioned out of the hospital soon if this level of improvement continues. TRANSINT:[id number] Voice Confirmation ID: [id number] DOCUMENT ID: [id number] LUCIE KIRBY MD at 1548 CC: [id number] DICTATION DATE: 06/29/19 171 HUMAN RESOURCE ASSISTANT: 06/29/19 1721 ADM IN [id number] [place] [address]
[2019-06-30] MEDS ORDERED: NAMENDA5 MG PO (15:59)
[2019-06-30] MEDS ORDERED: BUSPAR5 MG PO (15:59)
[2019-06-30] MEDS ORDERED: DESERYL PO (15:59)
[2019-06-30] MEDS ORDERED: MIRALAX17 GM PO (15:59)
[2019-06-30] MEDS ORDERED: Senokot TAB PO (15:59)
[2019-06-30] MEDS ORDERED: ZOLOFT50 MG PO (15:59)
[2019-06-30] MEDS ORDERED: VITAMIN D PO (16:00)
[2019-06-30 20:11] VITALS: BP 139/72
--- NOTE | 2019-06-30 21:49 | NUR ---
PATIENT IS CALM, LITTLE CONFUSED, PLEASANT, CAN MAKE NEEDS KNOWN, COMPLIANT WITH MEDS, PLAN TO D/C HOME TOMORROW. WILL FOLLOW POC
--- NOTE | 2019-07-01 08:41 | PN ---
PATIENT:SAMEER WHITE MEDICAL RECORD: [id number] LOCATION:[facility] ADMISSION DATE: 06/23/19 PROGRESS NOTE DATE OF SERVICE: 06/30/2019 SUBJECTIVE: The patient's case was discussed with staff. He has no new complaint. OBJECTIVE: The patient is significantly and seriously impaired cognitively. He is oriented to person and place, but not adequately to time or situation. His behaviors have been excellent. There has been no aggression. I think this is related to the fact that he is in an environment that is supportive and structured. His family does not want to place him in a mcc. He will return home with his tomorrow. We have assisted her in finding additional caregivers. I think his prognosis is guarded and follow up will be with his primary care physician. TRANSINT:[id number] Voice Confirmation ID: [id number] DOCUMENT ID: [id number] LUCIE KIRBY MD at 0841 CC: [id number] DICTATION DATE: 06/30/191914 STORY EDITOR: 06/30/192046 ADM IN [facility] [address] [place] [address]
[2019-07-01 10:35] VITALS: BP 170/89
--- NOTE | 2019-07-01 16:47 | NUR ---
PT DISCHARGED HOME WITH AT THIS TIME. PT WAS ANXIOUS TO GO HOME WITH HIS . NURSE EXPLAINED MEDICATIONS TO AND IF THE MEDICATIONS ARE NOT AT THE PHARMACY THEN HAVE THEM CALL FOR US TO CALL IN. SHE VERBALIZED UNDERSTANDING. NURSE EXPLAINED DR. MONROY SET-UP AT [facility] OFFICE FOR REFILL ON HIS MEDICATIONS. NURSE EXPLAINED THE BROUCURE FOR CARING PLACE, INFORMATION IN PT HEALTH SUMMARY AND DEMENTIA EDUCATION. SHE VERBALIZIED UNDERSTANDING. NURSE STATED IF SHE HAD ANY QUESTIONS TO CALL THE UNIT AND ASK TO SPEAK WITH A NURSE. NURSE AMBUALTED WITH PT TO PASSENGER SIDE OF CAR AND INTO CAR. PT TOLERATED WELL. SHE THANKED NURSE AND VERBALIZIED UNDERSTANDING. PAPERWORK FAXED TO DR. CARDONA OFFICE AND APPT MADE. PAPERWORK AND ORDERS FAXED TO [facility] ON 06/30/2019. NURSE TOLD HER THAT THE PAPERWORK WAS FAXED. SHE STATED UNDERSTANDING.
== END 2019-07-01 16:35 | disposition home health service (06) | DRG 57 ==
LOC: D.PSYCH 14:22
PROVIDERS: ADMIT Psychiatry & Neurology Psychiatry; ATTEND Psychiatry & Neurology Psychiatry
DX: G30.9 Alzheimer's disease, unspecified (principal); F32.1 Major depressive disorder, single episode, moderate; F41.1 Generalized anxiety disorder; E11.9 Type 2 diabetes mellitus without complications; I10 Essential (primary) hypertension; E78.5 Hyperlipidemia, unspecified; N40.1 Benign prostatic hyperplasia with lower urinary tract symptoms; R33.8 Other retention of urine; K59.01 Slow transit constipation; E55.9 Vitamin D deficiency, unspecified; G47.00 Insomnia, unspecified; F02.80 Dementia in other diseases classified elsewhere, unspecified severity, without behavioral disturbance, psychotic disturbance, mood disturbance, and anxiety

== ENCOUNTER 2019-07-21 13:11 | Inpatient (IN) | payer MEDICARE ==
[~2019-07-21] VITALS: Ht 165.1 cm; Wt 64.1 kg
--- NOTE | ~2019-07-21 | PSY ---
PATIENT NAME:SAMEER WHITE MEDICAL RECORD: [id number] : 50 LOCATION:[facility] ADMISSION DATE: 07/21/19 ACCOUNT: [id number] PSYCHIATRIC EVALUATION DATE OF EVALUATION: 07/22/19 Defer to next dictated Psychosocial Dictated By: Erendira Bo APN I have interviewed/examined the above patient and agree with these documented findings. TRANSINT:[id number] Voice Confirmation ID: [id number] DOCUMENT ID: [id number] Dictated By: ERENDIRA BO I have interviewed/examined the above patient and agree with these documented findings. LUCIE KIRBY MD CC: [id number] DICTATION DATE: 07/22/19 1049 CLASS C DRIVER: 07/22/19 1138 ADM IN [facility] [address] [place] [address]
[~2019-07-21 13:11] MED LIST changes: +BUSPAR5 MG PO; +CENTRUM MEN'S1 EACH; +DESERYL PO; +GLIMEPIRIDE1 MG PO; +MIRALAX17 GM PO; +NAMENDA5 MG PO; +Senokot TAB PO; +VITAMIN D PO; +ZOLOFT50 MG PO
[2019-07-21 13:43] LABS: ANION GAP 13.9 mmol/L (8-16); CALCIUM 9.1 mg/dL (8.5-10.1); CARBON DIOXIDE 27.1 mmol/L (21.0-32.0); CREATININE - SERUM 1.4 mg/dL (0.6-1.3)
[2019-07-21 13:46] LABS: BASOPHILS 0.1 % (0-2); EOSINOPHILS 0.4 % (0-7); HEMATOCRIT 34.8 % (42.0-54.0); HEMOGLOBIN 11.2 g/dL (13.5-17.5); IMMATURE GRANULOCYTES 0.1 % (0-5); LYMPHOCYTES 29.4 % (15-50); MCH 25.3 pg (26.0-34.0); MCHC 32.2 g/dL (31.0-37.0); MCV 78.7 fL (80.0-100.0); MEAN PLATELET VOLUME 9.7 fL (7.4-10.4); MONOCYTES 8.4 % (2-11); NEUTROPHILS 61.6 % (40-80); PLATELET COUNT 207 10x3/uL (130-400); RBC 4.42 10x6/uL (4.20-6.10); WBC 7.1 10x3/uL (4.8-10.8)
[2019-07-21 13:49] LABS: ALBUMIN 3.9 g/dL (3.4-5.0); BILIRUBIN - TOTAL 0.36 mg/dL (0.2-1.3); MAGNESIUM - SERUM 1.9 mg/dL (1.8-2.4); PROTEIN - SERUM 8.6 g/dL (6.4-8.2)
[2019-07-21 14:19] LABS: UDS - AMPHET NEGATIVE QUAL (NEGATIVE); UDS - BARB NEGATIVE QUAL (NEGATIVE); UDS - BENZO NEGATIVE QUAL (NEGATIVE); UDS - COCAINE NEGATIVE QUAL (NEGATIVE); UDS - OPIATE NEGATIVE QUAL (NEGATIVE); UDS - PCP NEGATIVE QUAL (NEGATIVE); UDS - THC NEGATIVE QUAL (NEGATIVE)
[2019-07-21 14:31] LABS: AMORPHOUS SEDIMENT >1+ /lpf (NONE SEEN); BACTERIA FEW /hpf (NEGATIVE); BILIRUBIN NEGATIVE (NEGATIVE); EPITHELIAL CELLS OCC /hpf (0-5); GLUCOSE NEGATIVE (NEGATIVE); KETONE NEGATIVE (NEGATIVE); NITRITE NEGATIVE (NEGATIVE); RED CELLS - URINE 0-5 /hpf (0-5); WHITE CELLS - URINE RARE /hpf (NEGATIVE)
[2019-07-21 14:32] LABS: HYALINE CAST 0-5 /lpf (NONE SEEN)
--- NOTE | 2019-07-21 15:30 | NUR ---
The patient admits to us from the ED, his brought him here from home. The patient admits that he wants to and he says "I took a knife and put it here." He is pointing at the left inner forearm. There is no cut, but looks like a bruise or scratch. He says "Something is going on at my house and I just don't feel like anyone cares for me and I just wanna end it, I can't go on with things like this." The patient is very anxious, he is not able to concentrate and he is not answering questions without a lot of hesitation and he is looking around at something. He admits he feels anxious and says "I don't know why." Spoke to his Jj Duarte and she gives verbal consent for him to be here and she says he is a full code.
[2019-07-21 15:44] VITALS: BP 126/90; BMI 23.1
--- NOTE | 2019-07-21 16:30 | NUR ---
The patient is calmer now, no anxiety at this time.
[2019-07-21 20:23] VITALS: BP 137/83
--- NOTE | 2019-07-21 21:10 | NUR ---
B.) PT IS ALERT AND ORIENTED TO SELF AND SITUATION. HE HAS A FLAT AFFECT AND STATES THAT "NOONE CARES ABOUT ME". HE IS ABLE TO AMBULATE ON HIS OWN BUT PREFERS TO USE A WHEEL CHAIR. HE IS COOPERATIVE WITH STAFF. I.) PROVIDED PM MEDICATIONS PRESCRIBED. REDIRECT OFTEN. R.) COMPLIANT WITH ALL MEDICATIONS. EASY TO REDIRECT. P.) WILL CONTINUE TO MONITOR.
[2019-07-22 06:53] LABS: CHOL - HDL RATIO 1.6 ratio (2.3-4.9); LDL-HDL RATIO 0.6 ratio (1.5-3.5)
[2019-07-22 08:17] VITALS: BP 117/81
[2019-07-22 08:43] VITALS: Ht 165.1 cm; Wt 64.1 kg
--- NOTE | 2019-07-22 09:45 | NUR ---
The patient is depressed and withdran. He denies suicidal ideations today. He is a little paranoid, he thinks his family is not doing things right. He is unsteady so he is in a w/c and self propelling. He is watchful of staff and his surroundings. Provide prescribed meds. The patient is compliant with meds. Continue POC.
[2019-07-22 18:32] LABS: BILIRUBIN NEGATIVE (NEGATIVE); GLUCOSE NEGATIVE (NEGATIVE); KETONE NEGATIVE (NEGATIVE); NITRITE NEGATIVE (NEGATIVE); UROBILINOGEN NORMAL (NORMAL)
[2019-07-22 20:11] VITALS: BP 120/65
--- NOTE | 2019-07-22 20:41 | NUR ---
B.) PT IS ALERT AND ORIENTED TO SELF, PLACE AND SITUATION. HE HAS A BRIGHTER AFFECT. HE IS ABLE TO AMBULATE ON HIS OWN BUT USES A WHEELCHAIR TO ASSIST. HE IS CALM, PLEASANT AND COOPERATIVE WITH STAFF. HE DENIES ANY SELF HARM THOUGHTS TODAY. I.) PROVIDED PM MEDICATIONS PRESCRIBED. REDIRECT IF NEEDED. R.) COMPLIANT WITH ALL MEDICATIONS. EASY TO REDIRECT. P.) WILL CONTINUE TO MONITOR.
[2019-07-23 07:41] VITALS: BP 161/86
--- NOTE | 2019-07-23 09:26 | PSY ---
PATIENT NAME:SAMEER WHITE MEDICAL RECORD: [id number] : 50 LOCATION:[facility] ADMISSION DATE: 07/21/19 ACCOUNT: [id number] PSYCHIATRIC EVALUATION DATE OF EVALUATION: 07/22/19 DATE OF SERVICE: 07/22/2019 IDENTIFYING DATA: The patient is a 69-year-old male that was admitted to [facility] from the Emergency Room. CHIEF COMPLAINT: Suicidal ideation. HISTORY OF PRESENT ILLNESS: The patient reports that he was becoming overwhelmed and that things were not getting any better, that he was not going to win and stated that he was going to cut his wrist. The patient's family reports that he had decreased participation with his ADLs that he had become more withdrawn, more isolative in the last couple of weeks, had not been eating and not sleeping and had increasingly being confused and disoriented. The patient's family also stated that he becomes very easily irritated and agitated. PAST MEDICAL HISTORY: He had diabetes, hypertension, hyperlipidemia, BPH with LUTS. PAST SURGICAL HISTORY: None. FAMILY HISTORY: Noncontributory. ALLERGIES: COUGH WITH ASA INHIBITORS AND METFORMIN CAUSE GI SIDE EFFECTS. HOME MEDICATIONS: Include diltiazem 24-hour ER 240 mg p.o. daily, buspirone 5 mg p.o. b.i.d., memantine 5 mg p.o. b.i.d., sertraline 50 mg p.o. daily, trazodone 50 mg p.o. at bedtime, Senokot tablets 2 tabs p.o. daily, MiraLax 17 grams p.o. daily, vitamin D 10,000 units p.o. daily. SOCIAL HISTORY: The patient is . His previous was killed in an accident. 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 Prior to that, he worked at the [employer]. He has one daughter that lives in [place] and he has stepdaughter and current that live in [place]. MENTAL STATUS EXAM: The patient's general appearance is slightly disheveled. The patient is alert and oriented to person, place, time. Speech is soft, low tone, low volume with impaired articulation. The patient's associations are loose. The patient's eye contact is fair. Judgment is impaired. Impulsivity is high. The patient has mind or thought blocking. The patient's mood is depressed, anxious, easily agitated, paranoid. His affect is blunt, flat, narrow in range. No tremors were noted. His anxiety is moderate. His memory is fair for remote and recent events. The patient does not appear to be attending to visual or auditory hallucinations. DIAGNOSTIC IMPRESSION: AXIS I: Major depression, recurrent, severe, generalized anxiety disorder, dementia. AXIS II: Deferred. AXIS III: Diabetes, hypertension, hyperlipidemia, benign prostatic hyperplasia with lower urinary tract symptoms. AXIS IV: Moderate. AXIS V: Global assessment of function is 30. PLAN: At this time, the patient is admitted to the hospital for a comprehensive medical, psychological, and social evaluation. He will be treated with both mood stabilizing and memory enhancing medications. Dictated By: Erendira Bo APN I have interviewed/examined the above patient and agree with these documented findings. TRANSINT:[id number] Voice Confirmation ID: [id number] DOCUMENT ID: [id number] Dictated By: ERENDIRA BO I have interviewed/examined the above patient and agree with these documented findings. LUCIE KIRBY MD at 1322 at 0926 CC: [id number] DICTATION DATE: 07/22/19 1056 BEVERAGE SALES CONSULTANT: 07/22/19 1154 ADM IN [facility] [address] [id number]
--- NOTE | 2019-07-23 10:51 | NUR ---
The patient is awake and alert, he is pleasant, he denies suicidal ideations, his affect is blunted and he is sad and depressed. He is calm, he is unsteady and he is in a w/c self propelling. Provide prescribed meds. The patient is compliant with meds. Continue POC.
--- NOTE | 2019-07-23 18:59 | NUR ---
RECEIVED IN DAYROOM. SITTING IN A CHAIR WITH PEERS AT HIS SIDE. CALM AND COOPERAIVE WITH CARE AND ASSESSMENT. NO STATEMENTS OF SELF HARM VOICED THIS EVENING. ENCOURAGE TO EXPRESS NEEDS. CONTINUES TO SIT CALMLY IN DAYROOM. CONITNUE PLAN OF CARE.
[2019-07-23 20:00] VITALS: BP 154/81
[2019-07-24 08:05] VITALS: BP 142/95
--- NOTE | 2019-07-24 12:00 | NUR ---
RECEIVED IN HALLWAY OUTSIDE OF NURSES STATION. CALM AND COOPERATIVE WITH CARE AND ASSESSMENT. DENIES SI. REDIRECT AND REORIENT NEEDED. EATING AT THIS TIME. CONTINUE PLAN OF CARE.
--- NOTE | 2019-07-24 14:02 | NUR ---
Nutrition Follow-up: Eating well overall. Diet: Diabetic PO intake: 89% avg x 6 meals Wt: 136# (07/22) Labs noted: Glu 114 Meds noted: Amaryl, Humalog, vitamin D, Miralax -Encourage PO intake and honor food preferences within diet restrictions. -Monitor wt. -RD following.
--- NOTE | 2019-07-24 20:47 | NUR ---
RECEIVED IN DAYROOM. SITTING ON THE SOFA WITH PEERS AT HIS SIDE. CALM AND COOPERATIVE WITH CARE AND ASSESSMENT. NO SIGNS OF AGGRESSION. REDIRECT AND REORIENT NEEDED. RESTING IN BED WITH EYES CLOSED AT THIS TIME. CONTINUE PLAN OF CARE.
[2019-07-24 20:51] VITALS: BP 138/81
[2019-07-25 08:41] VITALS: BP 139/80
--- NOTE | 2019-07-25 12:00 | NUR ---
RECEIVED IN HALLWAY OUTSIDE OF NURSES STATION. CALM AND COOPERATIVE WITH CARE AND ASSESSMENT. DENIES SI. REDIRECT AND REORIENT NEEDED. EATING LUNCH AT THIS TIME. CONTINUE PLAN OF CARE.
--- NOTE | 2019-07-25 19:21 | NUR ---
RECEIVED IN DAYROOM. SITTING IN A CHAIR WITH PEERS AT HIS SIDE. CALM AND COOPERATIVE WITH CARE AND ASSESSMENT. NO STATEMENTS OF SELF HARM VOICED THIS EVENING. ENCOURAGE TO EXPRESS NEEDS. CONTINUES TO SIT CALMLY IN DAYROOM. CONTINUE PLAN OF CARE.
[2019-07-25 20:24] VITALS: BP 155/81
--- NOTE | 2019-07-26 07:48 | NUR ---
The patient is awake and alert, he is pleasant and calm. He is pleasant, he is not showing any anxiety this am. He denies S.I., he is sad in affect and has poor insight into his situation. Provide prescribed meds. The patient is compliant with meds. Continue POC.
[2019-07-26 08:00] VITALS: BP 128/80
--- NOTE | 2019-07-26 12:53 | PN ---
PATIENT:SAMEER WHITE MEDICAL RECORD: [id number] LOCATION:[facility] ADMISSION DATE: 07/21/19 PROGRESS NOTE DATE OF SERVICE: 07/25/2019 SUBJECTIVE: The patient's case was discussed with staff. He has no new complaint. OBJECTIVE: The patient is in good behavioral control, although quite confused. He is sleeping and eating well and has adapted well to the structure and routine of the unit. ASSESSMENT: Dementia. PLAN: I do not think this patient needs extensive pharmacologic management. I think that what he is taking is fine and appropriate. His behaviors at home are extremely dangerous and I think they are related to the lack of supervision and structure. I am strongly recommending that he be placed in an environment where he can receive 97-kwnu-t-day supervision. I will not discharge him home without referring the matter to adult protective services if it comes to that. I do not think his can care for him adequately or provide the supervision that he needs and furthermore I think that their familiarity triggers him and his behaviors. He needs long-term placement. TRANSINT:[id number] Voice Confirmation ID: [id number] DOCUMENT ID: [id number] LUCIE KIRBY MD at 1253 CC: [id number] DICTATION DATE: 07/25/19 1215 ASSISTANT PLANT MANAGER: 07/25/19 1318 ADM IN [id number] [place] [address]
[2019-07-26 20:06] VITALS: BP 141/77
--- NOTE | 2019-07-26 22:49 | NUR ---
B.) PT IS ALERT AND ORIENTED TO SELF, PLACE AND TIME. HE IS CALM AND COOPERATIVE WITH STAFF. HE CAN MAKE HIS NEEDS KNOWN. HE USES A WHEELCHAIR TO ASSIST WITH AMBULATION. HE DENIES SI AT THIS TIME. HE IS LESS WITHDRAWN. I.) PROVIDED PM MEDICATIONS PRESCRIBED. REDIRECT NEEDED. R.) COMPLIANT WITH ALL MEDICATIONS EXCEPT TRAZADONE. HE STATES "IT DOESNT HELP SO I DONT NEED TO TAKE IT." EASY TO REDIRECT. P.) WILL CONTINUE TO MONITOR.
--- NOTE | 2019-07-27 09:46 | NUR ---
SPOKE WITH PT'S THIS SHIFT. PASSCODE GIVEN. WANTED TO SEE HOW HIS NIGHT WENT SINCE SHE DID NOT TALK TO HIM YESTERDAY. NO BEHAVIORS NOTED. THANKED NURSE.
[2019-07-27 10:31] VITALS: BP 134/83
--- NOTE | 2019-07-27 12:00 | NUR ---
RECEIVED IN HALLWAY OUTSIDE OF NURSES STATION. CALM AND COOPERATIVE WITH CARE AND ASSESSMENT. NO BEHAVIORS. REDIRECT AND REORIENT NEEDED. EATING AT THIS TIME. CONTINUE PLAN OF CARE.
--- NOTE | 2019-07-27 14:11 | NUR ---
Nutrition Follow-up: PO intake remains good. Diet: Diabetic PO intake: 89% avg x 9 meals Wt: 136# (07/22); 136# (07/20) Labs noted: Glu 92 Meds noted: Amaryl, Humalog, vitamin D, Miralax -Encourage PO intake and honor food preferences within diet restrictions. -Monitor wt. -RD following.
--- NOTE | 2019-07-27 14:44 | PN ---
PATIENT:SAMEER WHITE MEDICAL RECORD: [id number] LOCATION:[facility] ADMISSION DATE: 07/21/19 PROGRESS NOTE DATE OF SERVICE: 07/26/2019 SUBJECTIVE: The patient's case was discussed with staff. He has no new complaint. OBJECTIVE: The patient is in good behavioral control. He has limited insight about his situation. ASSESSMENT: Dementia. PLAN: The patient is in need of placement. A constantino conversation will take place with his today. She has already expressed an interest in sending him to the half-way; however, she does not want him to pay for it with his social security cheque or resources. This is problematic and hopefully, there will be something worked out today. TRANSINT:[id number] Voice Confirmation ID: [id number] DOCUMENT ID: [id number] LUCIE KIRBY MD at 1444 CC: [id number] DICTATION DATE: 07/26/19 1558 BILLING SPECIALIST: 07/26/19 1618 ADM IN [id number] [place] [address]
[2019-07-27 20:00] VITALS: BP 114/45
--- NOTE | 2019-07-27 22:18 | NUR ---
B)RECEIVED PATIENT SITTING IN THE DAYROOM. ORIENTED X4. CALM AND COOPERATIVE. RELATES THE REASON FOR HOSPITALIZATION "I GOT INTO A DISPUTE WITH MY . THEY WERE GOING TO BUY A HOME AND IT WAS LIKE THEY DIDN'T WANT ME TO BE A PART OF IT. THEY WERE EXCLUDING ME AND THAT'S WHEN IT HAPPENED." RELATED HE WENT AND GOT SOME KNIVES AND THEY KEPT ON UNTIL THEY GOT THE KNIVES AND THEN HE WENT TO THE BEDROOM WHERE HE HAD SOME KNIVES AND THEY GOT INTO A SCUFFLE AND THAT IS WHEN HE GOT CUT ON HIS LEFT ARM. RELATED "IF SOMEBODY DON'T WANT ME THEN OH WELL. I'VE ALWAYS BEEN GOOD TO MY ." I)ADMINSTER MEDS AND MONITOR COMPLIANCE. OBTAIN VERBAL CONTRACT FOR NO SELF HARM. R)MED COMPLIANT. CONTRACTS VERBALLY FOR NO SELF HARM. DENIES SI RELATING "I LOVE MYSELF." P)CONTINUE POC AND PROVIDE SAFE ENVIRONMENT.
[2019-07-28 09:41] VITALS: BP 139/68
--- NOTE | 2019-07-28 13:47 | PN ---
PATIENT:SAMEER WHITE MEDICAL RECORD: [id number] LOCATION:[facility] ADMISSION DATE: 07/21/19 PROGRESS NOTE DATE OF SERVICE: 07/27/2019 SUBJECTIVE: The patient's case was discussed with staff. He has no new complaint. OBJECTIVE: The patient is in good behavioral control, but cognitively impaired. ASSESSMENT: Dementia. PLAN: The patient needs 96-hkqf-f-day supervision. Soon as that is arranged, he can be reasonably discharged. It is my understanding that the is now considering a jail, which is an appropriate placement for him. TRANSINT:[id number] Voice Confirmation ID: [id number] DOCUMENT ID: [id number] LUCIE KIRBY MD at 1347 CC: [id number] DICTATION DATE: 07/27/19 1453 SOIL EXPERT: 07/27/19 2105 ADM IN [facility] [address] [id number]
--- NOTE | 2019-07-28 13:50 | NUR ---
COVID-19 TEST ADMINISTERED AT THIS TIME. PT TOLERATED WELL.
--- NOTE | 2019-07-28 13:58 | NUR ---
PT SITTING IN DAY AREA. ALERT AND ORIENTED 3X. PT STATED DURING A.M. MEDS PASS STATED "WHATS IN THIS WATER?" NURSE EXPLAINED MIRALAX A MEDICATION FOR HIS BOWELS. PT STATED "I THOUGHT SO YALL KEEP PUMPING ME FULL OF THIS STUFF." PT COMPLIANT WITH MEDS, VITALS AND ASSESSMENTS. PT DENIES SELF HARM. PT IS QUIET AND WATCHES STAFF AND PEERS. CHAIR ALARM IN PLACE AND ACTIVE. WILL CONT PLAN OF CARE.
[2019-07-28 20:00] VITALS: BP 129/62
--- NOTE | 2019-07-28 20:03 | NUR ---
PATIENT IS PLEASANT, ORIENTED TO PERSON, PLACE, TIME AND SITUATION, HE DENIES ANY SUICIDIAL THOUGHTS, GOOD AFFECT, COMPLIANT WITH MEDS, MAKES ALL NEEDS KNOWN, COMMUNICATES AND GETS ALONG WELL WITH OTHERS. NO ADVERSE REACTION NOTED. WILL FOLLOW POC
[2019-07-29 09:03] VITALS: BP 147/67
--- NOTE | 2019-07-29 11:02 | NUR ---
PT SITTING IN W/C WATCHING STAFF AND PEERS. NURSE ATTEMPTED TO GIVE PT MEDS THIS SHIFT. PT STATED I DONT WANT THAT MIRALAX. NURSE SHOWED PT UNOPENED PACK. PT STATED WHATS IN THAT WATER?" NURSE EXPLAINED IT WAS JUST WATER AND PT DID NOT WANT TO DRINK IT. NURSE GAVE PT MEDS WITH A UNOPEN CAN OF SODA NURSE OPENED WITH PT. REFUSED MIRALAX. PT IS COOPERATIVE WITH STAFF WITH MEDS, VITALS AND ASSESSMENTS. PT CAN MAKE NEEDS KNOWN. ALARM IN PLACE AND ACTIVE. WILL CONT PLAN OF CARE.
--- NOTE | 2019-07-29 12:44 | PN ---
PATIENT:SAMEER WHITE MEDICAL RECORD: [id number] LOCATION:[facility] ADMISSION DATE: 07/21/19 PROGRESS NOTE DATE OF SERVICE: 07/28/2019 SUBJECTIVE: The patient's case was discussed with staff. He has no new complaint. OBJECTIVE: The patient is in better behavioral control. He denies thoughts of harming himself or others. He is not eating very well, but I have encouraged him to try to do better and he says he will. ASSESSMENT: Dementia. PLAN: Current medicines have been reviewed and will be maintained. Long-term prognosis is guarded. TRANSINT:[id number] Voice Confirmation ID: [id number] DOCUMENT ID: [id number] LUCIE KIRBY MD at 1244 CC: [id number] DICTATION DATE: 07/28/19 1425 SOCCER BALL ASSEMBLER: 07/28/19 2139 ADM IN [facility] [address] [place] [address]
[2019-07-29 20:00] VITALS: BP 146/53
--- NOTE | 2019-07-29 22:47 | NUR ---
B)RECEIVED PATIENT SITTING IN THE DAYROOM. ALERT AND ORIENTED. RELATES IS HERE BECAUSE "I HAD A MISUNDERSTANDING WITH MY ." PREOCCUPIED WITH WHERE HIS SHOES ARE. POOR INTERACTION WITH PEERS. SITS ALONE HOWEVER IS APPROPRIATE WHEN APPROACHED BY STAFF. I)ADMINISTER MEDS AND MONITOR COMPLIANCE. OBTAIN VERBAL NO HARM CONTRACT. R)MED COMPLIANT. CONTRACTS VERBALLY FOR NO SELF HARM. DENIES SI. P)CONTINUE POC AND PROVIDE SAFE ENVIRONMENT.
[2019-07-30 09:33] VITALS: BP 151/68
--- NOTE | 2019-07-30 10:03 | PN ---
PATIENT:SAMEER WHITE MEDICAL RECORD: [id number] LOCATION:[facility] ADMISSION DATE: 07/21/19 PROGRESS NOTE DATE OF SERVICE: 07/29/2019 SUBJECTIVE: The patient's case was discussed with staff. He has no new complaint. OBJECTIVE: The patient is in good behavioral control. He has not been aggressive. ASSESSMENT: Dementia. PLAN: The patient is in need of 24-hour daycare. I believe that arrangements have been made for him to go to a local senior living on Wednesday. I see no clinical reason why that should not happen. TRANSINT:[id number] Voice Confirmation ID: [id number] DOCUMENT ID: [id number] LUCIE KIRBY MD at 1003 CC: [id number] DICTATION DATE: 07/29/19 1348 OPTICAL COATING TECHNICIAN: 07/29/19 1754 ADM IN [facility] [address] [id number]
[2019-07-30] MEDS ORDERED: DESERYL PO (11:31)
[2019-07-30] MEDS ORDERED: LINZESS145 MCG PO (11:32)
[2019-07-30] MEDS ORDERED: HUMALOG 30100 UNITS/ SC (11:32)
[2019-07-30] MEDS ORDERED: ZOLOFT100 MG PO (11:32)
[2019-07-30] MEDS ORDERED: VITAMIN D5000 UNI3 PO (11:33)
[2019-07-30] MEDS ORDERED: GLIMEPIRIDE2 MG PO (11:33)
--- NOTE | 2019-07-30 19:54 | NUR ---
RECEIVED IN DAYROOM. SITTING IN A CHAIR DURING GROUP. CALM AND COOPERATIVE WITH CARE NAD ASSESSMENT. NO SIGNS OF AGGRESSION. REDIRECT AND REORIENT NEEDED. CONTINUES TO SIT CALMLY IN DAYROOM. CONTINUE PLAN OF CARE.
[2019-07-30 20:00] VITALS: BP 142/62
[2019-07-31 09:39] VITALS: BP 166/80
--- NOTE | 2019-07-31 12:00 | NUR ---
RECEIVED IN HALLWAY OUTSIDE OF NURSES STATION. CALM AND COOPERATIVE WITH CARE AND ASSESSMENT. DENIES SUICIDIDAL IDEATION. REDIRECT AND REORIENT NEEDED. EATING LUNCH AT THIS TIME. CONTINUE PLAN OF CARE.
--- NOTE | 2019-07-31 13:21 | PN ---
PATIENT:SAMEER WHITE MEDICAL RECORD: [id number] LOCATION:[facility] ADMISSION DATE: 07/21/19 PROGRESS NOTE DATE OF SERVICE: 07/30/2019 SUBJECTIVE: The patient's case was discussed with staff. He has no new complaint. OBJECTIVE: The patient is only partially oriented. He has no thoughts of harming himself or others. The patient has been in good behavioral control. ASSESSMENT: Dementia. PLAN: The patient will be transitioned to the [facility] tomorrow. His long-term prognosis is guarded. Followup will be with his primary care physician. TRANSINT:[id number] Voice Confirmation ID: [id number] DOCUMENT ID: [id number] LUCIE KIRBY MD at 1321 CC: [id number] DICTATION DATE: 07/30/19 1130 LIVE IN HOUSEKEEPER NANNY: 07/30/19 1442 ADM IN [facility] [address] [place] [address]
--- NOTE | 2019-07-31 19:42 | NUR ---
RECEIVED IN DAYROOM. SITTING IN A RECLINER WITH PEERS AT HIS SIDE. CALM AND COOPERAITVBE WITH CARE AND ASSESSMENT. NO STATEMENTS OF SELF HARM MADE. ENCOURAGE TO EXPRESS NEEDS. REDIRECT AND REORIENT NEEDED. RESTING QUIETLY IN BED AT THIS TIME. CONTINUE PLAN OF CAER.
[2019-07-31 19:49] VITALS: BP 168/83
[2019-08-01 08:09] VITALS: BP 137/83
--- NOTE | 2019-08-01 12:00 | NUR ---
RECEIVED IN HALLWAY OUTSIDE OF NURSES STATION. CALM AND COOPERATIVE WITH CARE AND ASSESSMENT. NO SUICIDAL IDEATION. REDIRECT AND REORIENT NEEDED. EATING LUNCH AT THIS TIME. CONTINUE PLAN OF CARE.
--- NOTE | 2019-08-01 13:18 | PN ---
PATIENT:SAMEER WHITE MEDICAL RECORD: [id number] LOCATION:[facility] ADMISSION DATE: 07/21/19 PROGRESS NOTE DATE OF SERVICE: 07/31/2019 SUBJECTIVE: The patient's case was discussed with staff. He has no new complaint. OBJECTIVE: The patient is in good behavioral control with no agitated behavior. He is impaired cognitively. ASSESSMENT: Dementia. PLAN: The office of long-term care is not going to allow his placement in a longterm until they examine him. I do not know how long this will take. He has no place that he could reasonably go until that happens. TRANSINT:[id number] Voice Confirmation ID: [id number] DOCUMENT ID: [id number] LUCIE KIRBY MD at 1318 CC: [id number] DICTATION DATE: 07/31/19 1521 AIR BRUSH DECORATOR: 07/31/19 2240 ADM IN [facility] [address] [place] [address]
--- NOTE | 2019-08-01 20:00 | NUR ---
RECEIVED IN DAYROOM. SITTING IN A CHAIR WITH PEERS AT HIS SIDE. CALM AND COOPERATIVE WITH CARE AND ASSESSMENT. NO STATEMENTS OF SELF HARM. REDIRECT AND REORIENT NEEDED. ENCOURAGE TO EXPRESS NEEDS. CONTINUES TO SIT CALMLY. CONTINUE PLAN OF CARE.
[2019-08-01 20:11] VITALS: BP 132/69
[2019-08-02 08:36] VITALS: BP 150/58
--- NOTE | 2019-08-02 09:36 | NUR ---
REFUSED [facility] "I DON'T TAKE THAT". HERE AND TALKS WITH HIM AND EXPLAINS PURPOSE OF MED BUT HE STILL REFUSES MED.
--- NOTE | 2019-08-02 10:20 | NUR ---
SW COMPLETED CHART AUDIT. PT'S BIOPSYCHOSOCIAL WAS COMPLETED ON 07/23 AT 10AM WAS NOT IN ELECTRONIC RECORD. PAPER COPY WAS PLACED IN CHART.
--- NOTE | 2019-08-02 13:35 | PN ---
PATIENT:SAMEER WHITE MEDICAL RECORD: [id number] LOCATION:[facility] ADMISSION DATE: 07/21/19 PROGRESS NOTE DATE OF SERVICE: 08/01/2019 SUBJECTIVE: The patient's case was discussed with staff. He has no new complaint. OBJECTIVE: The patient is sleeping and eating well. He is severely impaired cognitively. ASSESSMENT: Dementia. PLAN: Adult protective services or their inbound call center representative was here today to interview Sameer. As soon as they give him approval for transitioning to the penitentiary, I will discharge him. A cannot imagine on what grounds they would object, but at this point, they are blocking the discharge until they have had an opportunity to review the case. No penitentiary in the state can accept him without suffering a serious penalty without the approval of [facility]. TRANSINT:[id number] Voice Confirmation ID: [id number] DOCUMENT ID: [id number] LUCIE KIRBY MD at 1335 CC: [id number] DICTATION DATE: 08/01/19 154 ENGLISH HORN PLAYER: 08/02/19 0052 [facility] [address] [place] [id number]
--- NOTE | 2019-08-02 18:47 | NUR ---
RECEIVED THIS AM SITTING UP IN WHEELCHAIR.IS CALM AND COOPERATIVE.COMPLIANT WITH STAFF AND MEDS.NO BEHAVIORS OBSERVED.DENIES THOUGHTS OF SELFHARM.WILL CONTINUE WITH CURRENT PLAN OF CARE.
[2019-08-02 20:04] VITALS: BP 123/78
--- NOTE | 2019-08-02 21:15 | NUR ---
PATIENT IS QUIET, STAYS TO HIMSELF MORE THAN HE DID LAST WEEK, HE SEEMS A LITTLE SUSPICIOUS OF STAFF REGARDING MEDS AT TIMES, (NOT TRUSTING), NO ADVERSE REACTION NOTED TO MEDS, CAN MAKE NEEDS KNOWN, WILL FOLLOW POC
--- NOTE | 2019-08-03 13:45 | NUR ---
Nutrition Follow-up: Overall good PO intake. Ate 75-100% of meals yesterday. Diet: Diabetic PO intake: 85% avg x 9 meals Wt: 140# (07/30); 136# (07/22); 136# (07/20) Last BM: 08/02 Labs reviewed Meds noted: Linzess, Amaryl, vitamin D, Miralax -Encourage PO intake and honor food preferences within diet restrictions. -Monitor wt. -RD following.
--- NOTE | 2019-08-03 14:01 | PN ---
PATIENT:SAMEER WHITE MEDICAL RECORD: [id number] LOCATION:[facility] ADMISSION DATE: 07/21/19 PROGRESS NOTE DATE OF SERVICE: 08/02/2019 SUBJECTIVE: The patient's case was discussed with staff. He has no new complaint. OBJECTIVE: The patient is in good behavioral control. He has poor insight about his situation. ASSESSMENT: Dementia. PLAN: Brief supportive and educational interventions were made. The patient is ready for discharge and will be discharged as soon as the office of long-term care gives their approval. TRANSINT:[id number] Voice Confirmation ID: [id number] DOCUMENT ID: [id number] LUCIE KIRBY MD at 1401 CC: [id number] DICTATION DATE: 08/02/19 1521 MOTOR TEACHER: 08/03/19 0108 ADM IN [facility] [address] [place] [address]
--- NOTE | 2019-08-03 15:31 | NUR ---
PT SITTING IN CHAIR WATCHING T.V. AND OTHER PTS. PT IS ALERT AND CONFUSED. REDIRECT AND REORIENT NEEDED. PT IS COMPLIANT WITH MEDS, VITALS AND ASSESSMENTS. PT IS IN A GOOD MOOD WITH STAFF. PT CAN MAKE NEEDS KNOWN. WILL CONT PLAN OF CARE.
[2019-08-03 16:03] VITALS: BP 133/85
--- NOTE | 2019-08-03 19:17 | NUR ---
PT AND PT INQUIRED WHEN HE WAS DISCHARGING AND NURSE EXPLAINED WE WERE WAITING FOR SOME PAPERWORK FROM THE [facility]. SHE VERBALIZIED UNDERSTANDING. THEY ASKED ABOUT HIS CLOTHES AND TECH FOUND HIS CLOTHES.
[2019-08-03 20:00] VITALS: BP 127/75
--- NOTE | 2019-08-04 01:05 | NUR ---
B)RECEIVED PATIENT SITTING IN THE DAYROOM. ALERT AND ORIENTED X4. PLEASANT AND COOPERATIVE. DOES NOT INTERACT WITH PEERS. DENIES SI. I)ADMINISTER MEDS AND MONITOR COMPLIANCE. OBTAIN VERBAL NO HARM CONTRACT. R)MED COMPLIANT. CONTRACTS VERBALLY FOR NO SELF HARM. P)CONTINUE POC AND PROVIDE SAFE ENVIRONMENT.
--- NOTE | 2019-08-04 10:15 | NUR ---
The patient is awake and alert, he is oriented x3, has poor insight into his situation, he is not suicidal or showing any anxiety. Provide prescribed meds. Encourage the patient to interact in groups and activities. The patient is compliant with meds and unit milieu. Continue POC.
[2019-08-04 10:46] VITALS: BP 144/74
[2019-08-04 20:00] VITALS: BP 135/75
--- NOTE | 2019-08-05 00:32 | NUR ---
B.) PT IS ALERT AND ORIENTED TO SELF, TIME AND PLACE. HE HAS POOR INSIGHT INTO HIS SITUATION. HE IS USING A WHEELCHAIR TO ASSIST WITH AMBUATION. HE IS CALM AND COOPERATIVE WITH STAFF. HE DENIES ANY SI AND IS ABLE TO VOICE NEEDS AND WANTS. I.) PROVIDED PM MEDICATIONS PRESCRIBED. REDIRECT NEEDED. R.) COMPLIANT WITH ALL MEDICATIONS. EASY TO REDIRECT. P.) CONTINUE TO MONITOR.
[2019-08-05 08:09] VITALS: BP 144/80
--- NOTE | 2019-08-05 10:46 | NUR ---
The patient is awake and alert, he is polite. He told the medication nurse Dulce Ojeda LPN that he does not take zoloft, but he came and asked me about it and I explained to him that "Yes, sir you do take zoloft, it is for depression." He then went to [facility] and asked for it. He is oriented x3, he just has intermittant confusion and he has poor insight into his situation. He is not aggressive or showing any signs of paranoi. Provide prescribed meds. The patient is compliant with meds. Continue POC.
[2019-08-05 20:00] VITALS: BP 151/76
--- NOTE | 2019-08-05 23:23 | NUR ---
B.) PT IS ALERT AND ORIENTED TO SELF AND SITUATION. HE IS SELF ISOLATING AT TIMES BUT IS CALM AND COOPERATIVE WITH STAFF. HE IS ABLE TO VOICE NEEDS OR WANTS. DENIES ANY THOUGHTS OF SELF-HARM. I.) PROVIDED PM MEDICATIONS. REDIRECT NEEDED. R.) COMPLIANT WITH ALL MEDICATIONS. EASY TO REDIRECT. P.) WILL CONTINUE TO MONITOR.
[2019-08-06 08:34] VITALS: BP 127/76
--- NOTE | 2019-08-06 13:00 | NUR ---
The patient is awake and alert, he is pleasant, he is oriented x3. He is in a w/c and self propels. Provide prescribed meds. The patient is compliant with meds. He has not shown any anxiety, paranoia, or suicidal ideations. Continue POC.
[2019-08-06 20:04] VITALS: BP 110/57
[2019-08-07 07:40] VITALS: BP 124/69
--- NOTE | 2019-08-07 12:00 | NUR ---
RECEIVED IN HALLWAY OUTSIDE OF NURSES STATION. CALM AND COOPERATIVE WITH CARE AND ASSESSMENT. DENIES SUICIDAL IDEATION. REDIRECT AND REORIENT NEEDED. EATING LUNCH AT THIS TIME. CONTINUE PLAN OF CARE.
--- NOTE | 2019-08-07 12:04 | PN ---
PATIENT:SAMEER WHITE MEDICAL RECORD: [id number] LOCATION:[facility] ADMISSION DATE: 07/21/19 PROGRESS NOTE DATE OF SERVICE: 08/03/2019 SUBJECTIVE: The patient's case was discussed with staff. He has no new complaint. OBJECTIVE: The patient's condition is unchanged. He has no symptoms that require this level of care. ASSESSMENT: Dementia. PLAN: [place] of long[place] [facility] [place] him in a shelter. As soon as they do, we will place him in a shelter. TRANSINT:[id number] Voice Confirmation ID: [id number] DOCUMENT ID: [id number] LUCIE KIRBY MD at 1204 CC: [id number] DICTATION DATE: 08/03/19 1559 GUIDE EXCURSION: 08/03/19 1755 ADM IN [facility] [address] [place] [id number]
[2019-08-07 21:00] VITALS: BP 128/71
--- NOTE | 2019-08-07 21:56 | NUR ---
RECEIVED IN HALLWAY. SITTING WITH PEERS AT HIS SIDE. CALM AND COOPERATIVE WITH CARE AND ASSESSMENT. NO STATEMENTS OF SELF HARM VOICED. ENCOURAGE TO EXPRESS NEEDS. RESTING IN BED WITH EYES CLOSED. CONTINUE PLAN OF CARE.
[2019-08-08 08:04] VITALS: BP 143/77
--- NOTE | 2019-08-08 15:00 | PN ---
PATIENT:SAMEER WHITE MEDICAL RECORD: [id number] LOCATION:[facility] ADMISSION DATE: 07/21/19 PROGRESS NOTE DATE OF SERVICE: 08/07/2019 SUBJECTIVE: The patient's case was discussed with staff. He has no new complaint. OBJECTIVE: The patient is in good behavioral control with limited insight about his situation. ASSESSMENT: Dementia. PLAN: The patient can be discharged as soon as the office of long-term care gives approval. TRANSINT:[id number] Voice Confirmation ID: [id number] DOCUMENT ID: [id number] LUCIE KIRBY MD at 1500 CC: [id number] DICTATION DATE: 08/07/19 1342 TRADE SPECIALIST: 08/07/19 1406 ADM IN [facility] [id number] [place] [address]
[2019-08-08 20:09] VITALS: BP 120/59
--- NOTE | 2019-08-08 21:34 | NUR ---
RECEIVED IN DAYROOM. SITTING IN A CHAIR WITH PEERS AT HIS SIDE. CALM AND COOPERATIVE WITH CARE AND ASSESSMENT. NO STATEMENTS OF SELF HARM VOICED THIS EVENING. REDIRECT AND REORIENT NEEDED. RESTING IN BED WITH EYES CLOSED AT THIS TIME. CONTINUE PLAN OF CARE.
--- NOTE | 2019-08-09 08:34 | NUR ---
SW CONTACTED PT'S AND ALERTED OF DISCHARGE TODAY. PT'S CATERINA CAME BACK TODAY.
--- NOTE | 2019-08-09 10:25 | NUR ---
The patient is calm and he is watchful, he has not shown any aggression, paranoia, or suicidal ideations. He self propels in a w/c, he can ambulate with staff stand by. Provide prescribed meds. The patient is compliant with meds and unit milieu. Continue POC.
[2019-08-09 10:28] VITALS: BP 153/75
--- NOTE | 2019-08-09 12:00 | NUR ---
PATIENT DISCHARGED TO [facility]. PAPERWORK FAXED TO [facility] AND HARD COPY SENT WITH PATIENT. PERSONAL BELONGINGS SENT WITH PATIENT. REPORT CALLED TO ARA URIBE.
--- NOTE | 2019-08-09 14:51 | PN ---
PATIENT:SAMEER WHITE MEDICAL RECORD: [id number] LOCATION:[facility] ADMISSION DATE: 07/21/19 PROGRESS NOTE DATE OF SERVICE: 08/08/2019 SUBJECTIVE: The patient's case was discussed with staff. He has no new complaint. OBJECTIVE: The [place] [facility] [place] of [place] care to approve his [facility] placement. Once they do so, I will transition into the [facility], which has accepted him. ASSESSMENT: Dementia. PLAN: As above. We are waiting for the state to approve his chcf placement. TRANSINT:[id number] Voice Confirmation ID: [id number] DOCUMENT ID: [id number] LUCIE KIRBY MD at 1451 CC: [id number] DICTATION DATE: 08/08/19 1535 GOLDBEATER: 08/08/[address] [facility] [address] [place] [address]
== END 2019-08-09 12:00 | DRG 885 ==
LOC: D.ER 13:11 → D.PSYCH 15:32
PROVIDERS: Family Medicine; ADMIT Psychiatry & Neurology Psychiatry; ATTEND Psychiatry & Neurology Psychiatry
DX: F33.2 Major depressive disorder, recurrent severe without psychotic features (principal); R45.851 Suicidal ideations; G30.9 Alzheimer's disease, unspecified; E11.9 Type 2 diabetes mellitus without complications; I10 Essential (primary) hypertension; E78.5 Hyperlipidemia, unspecified; N40.1 Benign prostatic hyperplasia with lower urinary tract symptoms; F02.80 Dementia in other diseases classified elsewhere, unspecified severity, without behavioral disturbance, psychotic disturbance, mood disturbance, and anxiety; K59.00 Constipation, unspecified; G47.00 Insomnia, unspecified; E55.9 Vitamin D deficiency, unspecified

== ENCOUNTER → 2020-08-16 08:34 | Outpatient (CLI) | payer MEDICARE, MEDICAID ==
[2019-07-22 08:43] VITALS: BMI 23.1
[~2020-08-16 08:34] MED LIST changes: +GLIMEPIRIDE2 MG PO; +HUMALOG 30100 UNITS/ SC; +LINZESS145 MCG PO; +VITAMIN D5000 UNI3 PO; +ZOLOFT100 MG PO
[2020-08-16 09:08] LABS: BASOPHILS 0.4 % (0-2); EOSINOPHILS 1.9 % (0-7); HEMATOCRIT 34.8 % (42.0-54.0); HEMOGLOBIN 11.1 g/dL (13.5-17.5); LYMPHOCYTES 31.5 % (15-50); MCH 24.7 pg (26.0-34.0); MCHC 31.9 g/dL (31.0-37.0); MCV 77.3 fL (80.0-100.0); MEAN PLATELET VOLUME 8.9 fL (7.4-10.4); MONOCYTES 9.1 % (2-11); NEUTROPHILS 57.1 % (40-80); PLATELET COUNT 168 10x3/uL (130-400); RDW 14.4 % (11.5-14.5); WBC 6.4 10x3/uL (4.8-10.8)
[2020-08-16 09:27] LABS: BILIRUBIN NEGATIVE (NEGATIVE); KETONE NEGATIVE (NEGATIVE); NITRITE NEGATIVE (NEGATIVE); UROBILINOGEN NORMAL mg/dL (< 2)
[2020-08-16 09:28] LABS: BACTERIA FEW HPF (NONE SEEN); SQUAMOUS EPITHELIAL 0-5 HPF (0-4); WHITE CELLS - URINE 0-5 HPF (0-1)
[2020-08-16 09:50] LABS: ALBUMIN 4.1 g/dL (3.4-5.0); ANION GAP 11.4 mmol/L (8-16); BILIRUBIN - TOTAL 0.35 mg/dL (0.2-1.3); CALCIUM 8.7 mg/dL (8.5-10.1); CARBON DIOXIDE 31.3 mmol/L (21.0-32.0); CHOL - HDL RATIO 2.3 ratio (2.3-4.9); CREATININE - SERUM 1.2 mg/dL (0.6-1.3); LDL-HDL RATIO 1.2 ratio (1.5-3.5); POTASSIUM - SERUM 3.7 mmol/L (3.5-5.1); PROTEIN - SERUM 7.9 g/dL (6.4-8.2); THYROID STIMULATING HORMONE 1.09 uIU/mL (0.36-3.74)
[2020-08-17 09:11] LABS: CREATININE - URINE 158.8 mg/dL (Not Estab.); MICROALBUMIN - URINE 24.5 ug/mL (Not Estab.)
== END | disposition home or self-care (01) ==
LOC: D.LAB 08:34
PROVIDERS: ATTEND Family Medicine
DX: G31.83 Neurocognitive disorder with Lewy bodies (principal); E11.9 Type 2 diabetes mellitus without complications; I10 Essential (primary) hypertension; R19.07 Generalized intra-abdominal and pelvic swelling, mass and lump; Z00.00 Encounter for general adult medical examination without abnormal findings